=== PATIENT | male | born 1990 | race Caucasian/White ===

== ENCOUNTER 2017-08-05 02:14 | Emergency (ER) | payer BC, OTHER ==
[~2017-08-05] VITALS: Ht 193 cm; Wt 90.7 kg
[2017-08-05 03:39] VITALS: BP 150/92
[2017-08-05] MEDS ORDERED: HYDROCODONE/APAP 5/325MG 1 EACH TABLET ONE (04:37)
[2017-08-05] MEDS ORDERED: HYDROCODONE/APAP 5/325MG 1 EACH TABLET PO ONE (05:00)
--- NOTE | 2017-08-05 05:05 | NUR ---
SPLINTED WITH PRE-SAW VELCRO SPLINT. DISTAL CMS INTACT
== END 2017-08-05 05:09 | disposition home or self-care (01) ==
LOC: ER 02:17
DX: S62.111A Displaced fracture of triquetrum [cuneiform] bone, right wrist, initial encounter for closed fracture (principal); F17.200 Nicotine dependence, unspecified, uncomplicated; W22.01XA Walked into wall, initial encounter; Y93.89 Activity, other specified; Y92.89 Other specified places as the place of occurrence of the external cause; Y99.8 Other external cause status
CPT/HCPCS: 73130-TC; A4606; Z7610

== ENCOUNTER 2019-10-18 15:12 | Emergency (ER) | payer BC, OTHER ==
[~2019-10-18] VITALS: Ht 188 cm; Wt 79.4 kg
[2019-10-18 15:38] VITALS: BP 144/75
[2019-10-18] MEDS ORDERED: LET SOLN TOPICAL 8 ML UDC TP ONE (15:57)
[2019-10-18] MEDS ORDERED: KETOROLAC TROMETHAMINE INJ 30 MG/ML VIAL ONE (16:21)
[2019-10-18] MEDS ORDERED: TDAP [DIPH/PERTUSSIS/TET] 0.5 ML VIAL IM ONE (16:23)
[2019-10-18] MEDS: TDAP [DIPH/PERTUSSIS/TET] 0.5 ML VIAL IM ONE (16:27)
[2019-10-18] MEDS: KETOROLAC TROMETHAMINE INJ 60 MG/2 ML VIAL IM ONE (16:28)
--- NOTE | 2019-10-18 17:00 | NUR ---
Patient discharged to home in stable condition. Written and verbal after care instructions given. Patient verbalizes understanding of instruction. Pt ambulatory with a steady gait
[2019-10-20] MEDS ORDERED: LET SOLN TOPICAL 8 ML UDC TP ONE (12:30)
== END 2019-10-18 17:01 | disposition home or self-care (01) ==
LOC: ER 15:16
DX: S20.312A Abrasion of left front wall of thorax, initial encounter (principal); S70.312A Abrasion, left thigh, initial encounter; S80.212A Abrasion, left knee, initial encounter; S20.412A Abrasion of left back wall of thorax, initial encounter; S50.312A Abrasion of left elbow, initial encounter; S50.311A Abrasion of right elbow, initial encounter; V29.49XA Motorcycle driver injured in collision with other motor vehicles in traffic accident, initial encounter; Y93.89 Activity, other specified; Y92.488 Other paved roadways as the place of occurrence of the external cause; Y99.8 Other external cause status
CPT/HCPCS: 71045; 73080; 90471; 90715; 96372; 99284; J1885